=== PATIENT | female | born 1965 | race Caucasian/White ===

== ENCOUNTER → 2021-03-21 | Outpatient (CLI) | payer MEDICARE, OTHER ==
[2016-01-12 15:35] VITALS: BP 125/78
[~2021-03-21] MED LIST: METH-572 PO; NAPR-514 PO; OXYC1TAB22 PO; PREG150C PO
--- NOTE | 2021-03-21 14:00 | RAD ---
MR LUMBAR SPINE WO [id number] Date: 03/21/2021 11:06 AM Indication: RADICULOPATHY LUMBOSACRAL REGION. LUMBAR FACET ARTHROPATHY, SACROCOCCYGEAL DISORDER Comparison: 10/23/2018. Technique: Multi-planar multi-weighted magnetic resonance imaging of the lumbar spine was performed w ithout intravenous contrast using the standard lumbar spine protocol. FINDINGS: Trace anterolisthesis at L4-5. No acute fracture. Chronic sacral fractures. Mild multilevel degenerat delisa disc desiccation and disc height loss. Degenerative endplate edema at L4-5. The conus terminates at a normal level. No abnormal signal is seen within the visualized distal spina l cord. No clumping of intrathecal nerve roots. Sacral Tarlov cysts. No soft tissue abnormality in the visualized abdomen or pelvis. T12-L1: No disc bulge. No facet arthropathy. No significant spinal stenosis or neural foraminal narro wing. L1-L2: No disc bulge. No facet arthropathy. No significant spinal stenosis or neural foraminal narrow ing. L2-L3: No disc bulge. Mild facet arthropathy. No significant spinal stenosis or neural foraminal narr owing. L3-L4: Disc bulge. Mild facet arthropathy. No significant spinal stenosis or neural foraminal narrowi ng. L4-L5: Left hemilaminectomy. Moderate facet arthropathy with edema in the facet joints. No spinal can al stenosis. Mild bilateral neural foraminal narrowing. L5-S1: Disc bulge. Mild facet arthropathy. No significant spinal stenosis or neural foraminal narrowi ng. IMPRESSION: Mild lumbar spondylosis, detailed level by level above. Electronically signed by: David Wang MD (03/21/2021 1:57 PM) [facility]
== END ==
LOC: MRI 11:19
PROVIDERS: ATTEND Nurse Practitioner Family
DX: S32.10XA Unspecified fracture of sacrum, initial encounter for closed fracture (principal); G96.191 Perineural cyst; M47.26 Other spondylosis with radiculopathy, lumbar region; M51.27 Other intervertebral disc displacement, lumbosacral region; M48.8X7 Other specified spondylopathies, lumbosacral region; M43.16 Spondylolisthesis, lumbar region; X58.XXXA Exposure to other specified factors, initial encounter; Y93.89 Activity, other specified; Y92.89 Other specified places as the place of occurrence of the external cause; Y99.8 Other external cause status
CPT/HCPCS: 72148